=== PATIENT | male | born 1970 | race Caucasian/White ===

== ENCOUNTER 2021-04-19 06:10 | Emergency (ER) | payer OTHER ==
[~2021-04-19] VITALS: Ht 182.9 cm; Wt 104.5 kg
[2021-04-19] MEDS ORDERED: HYDROcodone/APAP 5/325 TABLET PO ONE (06:30)
[2021-04-19] MEDS ORDERED: SODIUM CHLORIDE FLUSH 10ML SYR IVF ONE (06:30)
[2021-04-19] MEDS ORDERED: HYDROcodone/APAP 5/325 TABLET ONE (06:43)
--- NOTE | 2021-04-19 07:05 | NUR ---
Report from Perez FRAZIER
[2021-04-19 07:08] LABS: ALBUMIN 3.9 g/dL (3.4-5.0); ANION GAP 8 mmol/L (5-15); CALCIUM 8.9 mg/dL (8.5-10.1); CHLORIDE 103 mmol/L (98-107)
[2021-04-19 07:09] LABS: BASOPHILS % (AUTO) 1 % (0-1); CREATININE 0.84 mg/dL (0.7-1.3); EOSINOPHILS % (AUTO) 8 % (1-7); LYMPHOCYTES % (AUTO) 20 % (22-44); MEAN CORPUSCULAR HEMOGLOBIN 31.4 pg (27.5-34.5); MEAN CORPUSCULAR HGB CONC 34.3 g/dL (33.2-36.2); MEAN PLATELET VOLUME 10.4 fL (7.4-10.4); MONOCYTES % (AUTO) 12 % (2-9); NEUTROPHILS % (AUTO) 58 % (42-75); PLATELET COUNT 287 x10^3/uL (130-400); RED BLOOD COUNT 5.01 x10^6/uL (4.38-5.82); RED CELL DISTRIBUTION WIDTH 13.7 % (9.4-14.8)
[2021-04-19 07:13] LABS: MD NO
--- NOTE | 2021-04-19 07:24 | NUR ---
PT to imaging
[2021-04-19] MEDS ORDERED: OMNIPAQUE 350 MG/ML, 100ML BOTTLE ONE (07:50)
[2021-04-19 08:00] VITALS: BP 148/76
--- NOTE | 2021-04-19 08:31 | NUR ---
MOHAN Matson at bedside for eval
== END 2021-04-19 09:47 | disposition home or self-care (01) ==
LOC: ED 07:15
DX: S30.22XA Contusion of scrotum and testes, initial encounter (principal); R10.2 Pelvic and perineal pain; I10 Essential (primary) hypertension; F17.210 Nicotine dependence, cigarettes, uncomplicated; X58.XXXA Exposure to other specified factors, initial encounter; Y93.89 Activity, other specified; Y92.89 Other specified places as the place of occurrence of the external cause; Y99.8 Other external cause status
CPT/HCPCS: 36415; 72193; 80048; 82040; 85025; 99285; Q9967